=== PATIENT | male | born 1985 | race Two or more races ===

== ENCOUNTER 2020-08-02 03:19 | Emergency (ER) | payer SELFPAY ==
[2020-08-02] MEDS ORDERED: Ondansetron 4 MG Tab.DIS PO ONE (03:57)
[2020-08-02] MEDS ORDERED: Alum Hydrox/Mag Hydrox/Simeth 15 ML, Metoclopramide 5 MG, Lidocaine 2% 5 ML PO ONE ×3 (03:57)
--- NOTE | 2020-08-02 04:00 | EDM.PDOC ---
ED HPI GENERAL MEDICAL PROBLEM - General Chief Complaint: Abdominal Pain Stated Complaint: CHEST PAIN, VOMITING Time Seen by Provider: 08/02/20 03:48 - History of Present Illness INITIAL COMMENTS - FREE TEXT/NARRATIVE: History of present illness: [] The patient has abdominal pain for 1 month. In the morning he throws up. He has been having abdominal pain and throwing up every morning for more than a month. Yesterday went to an urgent care center. The urgent care center said he needed to go quickly to the emergency department. The emergency department did a work-up that he says included lab and CAT scan and put him on an H2 veronica and PPI. This morning he woke up and he still sick feels like he wants to throw up and has epigastric pain. Its moderately severe. He and his significant other said that they have a friend that had a heart attack and was misdiagnosed in [place] so they came to [place] because he did not trust them. This anecdotal information really appears to have nothing new with this patient or his work-up. The plan is to evaluate the patient thoroughly and see what his cause of his recurrent symptoms are as best I can however this would include getting records from [place] so I do not do any redundant tests. Review of systems: As per history of present illness and below otherwise all systems reviewed and negative. Past medical history: As per history of present illness and as reviewed below otherwise noncontributory. Surgical history: As per history of present illness and as reviewed below otherwise noncontributory. Social history: No reported history of drug or alcohol abuse. Family history: As per history of present illness and as reviewed below otherwise noncontributory. Physical exam: Constitutional - well developed, well-nourished and in no acute distress HEENT - normocephalic, no evidence of trauma - external nose and mouth normal - no mass in neck and no JVD - mucosae moist EYES - full EOM, PERRL, no icterus - no evidence of inflammation, injection, or drainage Respiratory - no respiratory distress, equal bilateral expansion, lungs clear to auscultation and no abnormal lung sounds Cardiovascular - Regular Rhythm with S1 and S2 appreciated and no murmur, gallop or rub. GI - abdomen soft without distension or organomegaly -minimal tenderness in epigastrium-normal bowel sounds - no guard or rebound Musculoskeletal no gross deformity of long bones or joints - no tenderness, swelling or edema Neurologic - Alert and oriented times four - CN II-XII grossly intact - motor sensory and coordination symmetrically normal Psychiatric - appropriate mood and affect with normal thought content Hematologic - No petechiae or purpura - mucosa appropriate color and sclera not pale - normal nail bed color and refill Integument - no rash or evidence of trauma - normal turgor Diagnostics: [] Therapeutics: [] Impression: [] Plan: [] Definitive disposition and diagnosis as appropriate pending reevaluation and review of above. - Related Data Allergies Allergy/AdvReac Type Severity Reaction Status Date / Time No Known Allergies Allergy Verified 08/02/20 03:54 Home Meds: Home Meds Ondansetron [Zofran ODT] 4 mg PO Q6H PRN #10 tab.dis 08/02/20 [Rx] Sucralfate [Carafate] 1 gm PO Q6HR #90 tab 08/02/20 [Rx] Sucralfate [Carafate] 1 gm PO Q6HR #90 tab 08/02/20 [Rx] Past Medical History - Past Health History Medical/Surgical History: Denies Medical/Surgical History Social & Family History - Family History Family Medical History: No Pertinent Family History - Tobacco Use Tobacco Use Status *Q: Never Tobacco User - Recreational Drug Use Recreational Drug Use: No ED ROS GENERAL - Review of Systems Review Of Systems: Comprehensive ROS is negative, except as noted in HPI. ED EXAM, GENERAL - Physical Exam Exam: See Below Free Text/Narrative:: My physical exam is in the HPI Course - Vital Signs Text/Narrative:: 04 50 4 AM I reviewed the patient's records from [place] and he had a rather thorough work-up. He had a CT and labs including lipase and amylase. They made a diagnosis of possible peptic ulcer disease and certainly hyperacidity and gastritis. The therapy was appropriate. They also noted that patient drinks too much alcohol and recommended that he taper or cut that out. They mention the possibility of upper GI endoscopy which I think would have been a good idea. He does not seem to have had a referral as they probably do not have arrangements to do that in [place]. I am glad antiemetics and Carafate and recommend the patient follow-up for endoscopy. Last Recorded V/S: Last Vital Signs Temp 36.4 C 08/02/20 03:49 Pulse 64 08/02/20 03:49 Resp 15 08/02/20 03:49 BP 118/70 08/02/20 03:49 Pulse Ox 100 08/02/20 03:49 - Orders/Labs/Meds Meds: Medications Discontinued Medications Generic Name Dose Route Start Last Admin Trade Name Freq PRN Reason Stop Dose Admin Al Hydroxide/Mg Hydroxide 15 0 ml 08/02/20 03:57 08/02/20 04:12 ml/ Metoclopramide HCl 5 mg/ PO 08/02/20 03:58 1 each Lidocaine HCl 5 ml ONETIME ONE Administration Ondansetron HCl 4 mg 08/02/20 03:57 08/02/20 04:12 Ondansetron 4 Mg Tab.Dis PO 08/02/20 03:58 4 mg ONETIME ONE Administration Departure - Departure Time of Disposition: 04:55 Disposition: Home, Self-Care 01 Condition: Good Clinical Impression: Gastritis - Discharge Information Prescriptions: Sucralfate [Carafate] 1 gm PO Q6HR #90 tab Ondansetron [Zofran ODT] 4 mg PO Q6H PRN #10 tab.dis PRN Reason: Nausea/Vomiting Instructions: Gastritis, Adult, [id number] Referrals: PCP,None [Primary Care Provider] - Forms: ED Department Discharge Additional Instructions: Use an antacid such as Maalox or Tums if you need more than what we have given you. Continue the 2 medicines recommended by the prior physician. Add the new prescription that was sent to the pharmacy. He needs to schedule an upper GI endoscopy to see if he have an ulcer. In [facility] that is done by the general surgeons. [facility] - General Surgery Professional Building [address] [place] [address], [address] [place] [address] The following information is given to patients seen in the emergency department who are being discharged to home. This information is to outline your options for follow-up care. We provide all patients seen in our emergency department with a follow-up referral. The need for follow-up, as well as the timing and circumstances, are variable depending upon the specifics of your emergency department visit. If you don't have a primary care physician on staff, we will provide you with a referral. We always advise you to contact your personal physician following an emergency department visit to inform them of the circumstance of the visit and for follow-up with them and/or the need for any referrals to a consulting specialist. The emergency department will also refer you to a specialist when appropriate. This referral assures that you have the opportunity for follow-up care with a specialist. All of these measure are taken in an effort to provide you with optimal care, which includes your follow-up. Under all circumstances we always encourage you to contact your private physician who remains a resource for coordinating your care. When calling for follow-up care, please make the office aware that this follow-up is from your recent emergency room visit. If for any reason you are refused follow-up, please contact the [facility] Emergency Department at and asked to speak to the emergency department charge nurse. Sepsis Event Note (ED) - Evaluation Sepsis Screening Result: No Definite Risk - Focused Exam Vital Signs: Vital Signs Temp Pulse Resp BP Pulse Ox 08/02/20 03:49 36.4 C 64 15 118/70 100
== END 2020-08-02 05:16 | disposition home or self-care (01) ==
LOC: MW.ED 03:19
DX: K29.70 Gastritis, unspecified, without bleeding (principal)
CPT/HCPCS: 99284; A9270; 99283